=== PATIENT | male | born 1975 | race Caucasian/White ===

== ENCOUNTER → 2017-09-04 | Outpatient (CLI) | payer BC | LOC: COL.LAB 10:37 | DX: Z01.812 Encounter for preprocedural laboratory examination (principal); M25.852 Other specified joint disorders, left hip ==

== ENCOUNTER → 2018-01-12 | Outpatient (CLI) | payer BC ==
[2018-01-12 11:10] LABS: COLLECTION METHOD CLEAN CATCH
[2018-01-12 11:17] LABS: HEMATOCRIT 43.7 % (42.0-52.0); HEMOGLOBIN 13.7 g/dl (13.5-18.0); MEAN CELL VOLUME 61 fl (80.0-100.0); MEAN CORPUSCULAR HEMOGLOBIN 19 pg (27.0-31.0); MEAN CORPUSCULAR HGB CONC 31 g/dl (33.0-37.0); MEAN PLATELET VOLUME 9.5 fl (7.4-10.4); PLATELET COUNT 219 K/mm3 (130-400); RED BLOOD COUNT 7.19 M/mm3 (4.20-5.60); REDCELL DISTRIBUTION WIDTH-CV 19.4 % (11.5-14.5)
[2018-01-12 11:20] LABS: MUCOUS Present /lpf; PH 5 (5-8); SQUAMOUS EPITHELIAL None Seen /hpf; URINE APPEARANCE Clear; URINE BACTERIA None Seen /hpf; URINE BILIRUBIN Negative (NEGATIVE); URINE BLOOD Negative (NEGATIVE); URINE COLOR Yellow; URINE GLUCOSE Negative (NEGATIVE); URINE KETONE Negative (NEGATIVE); URINE LEUKOCYTE ESTERASE Negative (NEGATIVE); URINE NITRATE Negative (NEGATIVE); URINE PROTEIN(semi-quant) Negative (NEGATIVE); URINE RBC 0-2 /hpf; URINE UROBILINOGEN Negative (NEGATIVE)
[2018-01-12 11:22] LABS: INR 0.9 (0.8-3.0)
[2018-01-12 11:28] LABS: ALBUMIN 4.1 gm/dL (3.5-5.0); BILIRUBIN,TOTAL 0.8 mg/dL (0.0-1.0); CALCIUM 9.6 mg/dL (8.4-10.2); CREATININE, serum 1.02 mg/dL (0.66-1.25); POTASSIUM 4.1 mmol/L (3.4-5.0); TOTAL PROTEIN 7.3 gm/dL (6.4-8.2)
[2018-01-12 11:58] LABS: ANISOCYTOSIS 3+; BAND 12 % (0-10); LYMPHOCYTE 30 % (20.0-51.0); NEUTROPHILS 57 % (42.0-75.2); PLATELET ESTIMATE NORMAL (NORMAL)
[2018-01-12 11:59] LABS: MICROCYTOSIS 2+; OVALOCYTES 1+
== END ==
LOC: COL.LAB 10:44
PROVIDERS: Orthopaedic Surgery
DX: Z01.812 Encounter for preprocedural laboratory examination (principal)

== ENCOUNTER 2018-01-26 13:26 | Emergency (ER) | payer BC ==
[~2018-01-26] VITALS: Ht 182.9 cm; Wt 122.3 kg
[2018-01-26 13:32] VITALS: BP 113/65; TEMP 98.1
[2018-01-26] MEDS ORDERED: ROXICODONE 55 MG/TAB PO (13:44)
[2018-01-26] MEDS ORDERED: NAPROSYN500 MG PO (13:45)
[2018-01-26] MEDS ORDERED: CEPHALEXIN500 M1 PO (13:45)
[2018-01-26 14:44] VITALS: PULSE 88
== END 2018-01-26 14:45 | disposition home or self-care (01) ==
LOC: COL.ER 13:26
DX: G97.1 Other reaction to spinal and lumbar puncture (principal)